=== PATIENT | male | born 1970 | race Caucasian/White ===

== ENCOUNTER 2016-12-13 21:44 | Emergency (ER) | payer BC ==
[~2016-12-13] VITALS: Ht 185.4 cm; Wt 81.8 kg
[~2016-12-13 21:44] MED LIST: NO HOME MEDICATIONS; PERCOCET 325 MG1 TA2 PO; ZITHROMAX Z PA250 MG PO
[2016-12-13 21:47] VITALS: BP 133/71; TEMP 99.1
[2016-12-13] MEDS ORDERED: DOXYCYCLINE 10100 MG PO (22:31)
[2016-12-13] MEDS ORDERED: PREDNISONE20 MG PO (22:31)
[2016-12-13] MEDS ORDERED: PHENERGAN W/CO120 M1 PO (22:34)
[2016-12-13 23:00] VITALS: PULSE 91
== END 2016-12-13 23:00 | disposition home or self-care (01) ==
LOC: COL.ER 21:44
DX: J20.9 Acute bronchitis, unspecified (principal); F17.210 Nicotine dependence, cigarettes, uncomplicated; Z90.89 Acquired absence of other organs
CPT/HCPCS: J7512